=== PATIENT | male | born 1945 | race Caucasian/White ===

== ENCOUNTER 2016-10-19 06:30 | Emergency (ER) | payer MEDICARE ==
--- NOTE | 2016-10-19 08:16 | DIAGNOSTIC IMAGING REPORT ---
PROCEDURE: XR CHEST 1 VIEW INDICATION: SHORTNESS OF BREATH, initial encounter TECHNIQUE: Portable AP view 07:02 a.m. COMPARISON: Chest x-ray 02/10/2014 FINDINGS: Interval dual lead pacemaker. Poor inspiration but lungs are clear. Mild cardiomegaly. Mediastinum and pulmonary vessels are normal. Thorax is normal. IMPRESSION: 1. Pacemaker 2. Mild cardiomegaly
--- NOTE | 2016-10-19 08:48 | DIAGNOSTIC IMAGING REPORT ---
PROCEDURE: CTA THORAX WITH CONTRAST INDICATION: CHEST PAIN, initial encounter TECHNIQUE: 88 ml of Isovue 370 was injected intravenously and axial images were obtained of the entire thorax with 3D sagittal and coronal MIP reconstructions. COMPARISON: Chest x-ray 10/19/2016 FINDINGS: There are breathing artifacts. There are no large central pulmonary emboli. Suboptimal opacification of the distal branches likely due to breathing artifacts. Lungs are clear. No adenopathy or effusion. No aortic dissection or aneurysm. Minor coronary atherosclerosis. Mild cardiomegaly and small pericardial effusion. Pacemaker in place. Visualized upper abdomen is unremarkable. Bony thorax is unremarkable. IMPRESSION: 1. No evidence of large central pulmonary emboli but cannot exclude small peripheral emboli due to breathing artifacts 2. Pacemaker with mild cardiomegaly and small pericardial effusion 3. Results discussed with Dr. Amador
--- NOTE | 2016-10-19 09:57 | ED NURSING NOTES ---
Clinical Report - Nurses [facility] [address] [place] [address] 10/19/2016 6:31 Patient: CHELY RANGEL TRIAGE Triage time 06:37 Oct 19 2016. Chief Complaint: SHORTNESS OF BREATH. --06:41 Chaka Mayer R.N. 06:37 10/19/16. BP: 148/100. HR: 67. RR: 22. O2 saturation: 95%. Temp: 98.1 F. Pain level now 05/08. --06:41 Chaka Mayer R.N. ( Pt is in aflutter). --06:52 Chaka Mayer R.N. Weight: 90.7 kg stated. Height/Length: 68 inches Per Patient. BMI: 30.4. --06:51 Chaka Mayer R.N. Medications Lisinopril-Hydrochlorothiazide Oral (Tablet 20-12.5 mg) 1 tablet, daily. --06:38 Dayanna Eisenberg R.N. Lisinopril Oral 20 mg, daily. --06:56 Dayanna Eisenberg R.N. The following entry was struck and corrected by Dayanna Eisenberg R.N., 07:25 (10/19/16) Reason for correction - other(correction). <<STRICKEN ENTRY-- Lisinopril-Hydrochlorothiazide Oral. --06:38 Chaka Mayer R.N. --END STRIKE>> The following entry was struck and corrected by Dayanna Eisenberg R.N., 07:24 (10/19/16) Reason for correction - other(correction). <<STRICKEN ENTRY-- Lisinopril Oral. --06:56 Chaka Mayer R.N. --END STRIKE>>. Allergies No Known Drug Allergy. --06:38 Chaka Mayer R.N. History Arrived by private vehicle. Historian: patient. ( Pt reports pain with inspiration for last days, he has had difficulty sleeping as a result. Pt is speaking in full sentences and unlabored). This started yesterday. He has had chest pain. --06:41 Chaka Mayer R.N. SOCIAL HX: Never smoker. Alcohol use; consumes wine occasionally. No drug use. --06:52 Chaka Mayer R.N. PROBLEMS: Hypertension. --06:40 Chaka Mayer R.N. Heart block. --06:48 Chaka Mayer R.N. ADDITIONAL SURGERIES: Pacemaker. --06:40 Chaka Mayer R.N. Interventions ID band on patient. To treatment room. --06:52 Chaka Mayer R.N. PHYSICAL ASSESSMENT GENERAL / NEURO / PSYCH: Alert. Oriented X 4. Appears in no acute distress. Appears anxious. RESPIRATORY: No respiratory distress. Respirations not labored. Breath sounds within normal limits. CVS: Cardiac rhythm: atrial flutter. GI / : Bowel sounds within normal limits. SKIN: Skin is warm and dry. --06:52 Chaka Mayer R.N. NURSING PROGRESS NOTES 06:41 10/19/2016 Site #1 started via IV in the left antecubital space with an 18g angiocath, with good blood return; one attempt. Blood drawn: rainbow set. --06:46 Chaka Mayer R.N. parking control officer and pulse oximeter placed on patient. Patient gowned. Reassurance given. Two patient identifiers checked. Call light placed in reach. Side rails up x 1. Bed placed in lowest position. Patient ready for evaluation- chart flagged and notification provided. --06:53 Chaka Mayer R.N. EKG time: (0649 AM). EKG was ordered, performed by a tech and shown to the ED physician. --06:57 Josette Nayak Care transferred and report received (from PURA Null). --07:13 Dayanna Eisenberg R.N. 07:14 10/19/16. BP: 128/78. HR: 70. O2 saturation: 95%. --07:14 Chaka Mayer R.N. 07:29 10/19/16. Monitoring of patient in place; (Placed on "pacer mode", pt is 100% paced, remains a flutter underlying. Urine sample sent to lab.). --07:29 Dayanna Eisenberg R.N. 09:59 10/19/16. BP: 136/98. HR: 70. RR: 18. O2 saturation: 96%. Temp: 98.3 F. Pain level now 03/08. --10:03 Amelie Huggins R.N. 10:09 10/19/2016 Morphine IVP 4 mg given over 2 minute(s) via site #1. Allergies verified, confirmed 5 rights and sedative warning given to the patient. IV patency established. IV site checked: no pain, redness, or swelling. IV flushed thoroughly pre- and post-medication administration. --10:09 Amelie Huggins R.N. 10:13 10/19/2016 Aspirin PO Capsules 325 mg given. Allergies verified and confirmed 5 rights. --10:13 Amelie Huggins R.N. Head of bed elevated (90). Reassurance given. ( pt resting soundly.). --10:16 Amelie Huggins R.N. 10:15 10/19/16. BP: 129/81. HR: 70. RR: 18. O2 saturation: 95%. --10:16 Amelie Huggins R.N. 11:10/19/16. BP: 125/78. HR: 70. RR: 18. O2 saturation: 96%. Pain level now 12/06. --11:05 Amelie Huggins R.N. 16:05 10/19/16. BP: 122/72. HR: 88. RR: 18. O2 saturation: 97%. Pain level now: 11/08. 15:10 10/19/16. BP: 100/72. HR: 78. RR: 18. O2 saturation: 97%. 14:40 10/19/16. BP: 130/80. HR: 70. RR: 18. O2 saturation: 97%. 13:10 10/19/16. BP: 124/82. HR: 70. RR: 18. O2 saturation: 97%. 12:15 10/19/16. BP: 122/65. HR: 85. RR: 20. O2 saturation: 97%. Pain level now: 12/06. 11:10/19/16. BP: 125/78. HR: 70. RR: 18. O2 saturation: 96%. Pain level now 12/06. --16:42 Amelie Huggins R.N. DISPOSITION / DISCHARGE Departure time: 16:46 Oct 19 2016. Transferred to [facility]. ( Report given and chart printed for RN for transfer. All questions answered.). --16:46 Amelie Huggins R.N. 16:05 10/19/16. BP: 122/72. HR: 88. RR: 18. O2 saturation: 97%. Pain level now: 11/08. --16:46 Amelie Huggins R.N. 16:21 10/19/2016 Site #[address] upon transfer; patent. Good blood return present. Flushed with 5 mL saline; flushes easily. --16:46 Amelie Huggins R.N. Locked/Released at 10/19/2016 16:47 by Amelie Huggins R.N.
--- NOTE | 2016-10-19 09:57 | ED ORDER SUMMARY ---
..... Patient: CHELY RANGEL [facility] VisitID: [id number] [place] [address] 70y, M Registration Date/Time: 10/19/2016 ORDER SHEET Weight: 90.7 kg (stated) Allergies: No Known Drug Allergy GENERAL ORDERS: Chest 1V Urgent (06:56 10/19/2016 Blanka Mary) (Ack 6:58 DBeyer R.N.) (11:05 LWhalen R.N.) Stamp Redemption Clerk (Continuous) (sob, cp, a flutter) (06:56 10/19/2016 Blanka Mary) (6:57 DBeyer R.N.) CBC w Diff Urgent (06:56 10/19/2016 Blanka Mary) (6:57 DBeyer R.N.) CMP Urgent (06:56 10/19/2016 Blanka Mary) (6:57 DBeyer R.N.) UA-Culture if indicated Urgent (06:56 10/19/2016 Blanka Mary) (Ack 7:27 Kym) (7:28 LSullivan R.N.) PT with INR Urgent (06:56 10/19/2016 Blanka Mary) (6:57 DBeyer R.N.) PTT Urgent (06:56 10/19/2016 Blanka Mary) (6:57 DBeyer R.N.) Troponin-I Urgent (06:56 10/19/2016 Blanka Mary) (6:57 DBeyer R.N.) EKG - ER Stat (06:56 10/19/2016 Blanka Mary) (6:56 CHategekimana) Pulse oximeter (06:56 10/19/2016 Blanka Mary) (6:57 DBeyer R.N.) D-Dimer Urgent (07:11 10/19/2016 Blanka Mary) (Ack 7:26 Kym) (8:03 LSullivan R.N.) CTA Thorax w Cont (No) (gfr > 60) Urgent (07:34 10/19/2016 Blanka Mary) (Ack 7:39 Kym) (11:05 LWhalen R.N.) BNP Urgent (07:34 10/19/2016 Blanka Mary) (Ack 7:39 Kym) (8:03 LSullivan R.N.) Troponin-I (draw 2 hours after first trop drawn) Urgent (08:37 10/19/2016 Blanka Mary) (Ack 8:54 Kym) (11:05 LWhalen R.N.) MEDICATION ORDERS: Aspirin PO 325 mg (Do not crush or chew, NOW) (10:07 10/19/2016 Blanka Mary) (10:13 LWhalen R.N.) IV FLUIDS: IV Saline Lock (06:56 10/19/2016 Blanka Mayr) (6:57 LAURENTeyer R.N.) Morphine IV 4 mg (HIGH ALERT MEDICATION, NOW) (10:03 10/19/2016 Blanka Mary) (Cancelled: Duplicate Order10:04 Blanka Mary) Morphine IV 4 mg (once now. may repeat PRN pain > 5/10 every 1 hour. ) (10:04 10/19/2016 Blanka Mary) (10:09 LWhalen R.N.) ORDER SHEET NOTES: [Electronically signed by Amelie Huggins R.N. (16:47 10/19/2016)] [Electronically signed by Jerry Amador Dr. (16:04 10/27/2016)] [Electronically locked/signed by Amelie Huggins R.N. (16:47 10/19/2016)]
--- NOTE | 2016-10-19 09:57 | ED CLINICAL REPORT ---
Clinical Report - Physicians/Mid Levels [facility] [address] [place] [address] 10/19/2016 6:31 Patient: CHELY RANGEL Arrived- By private vehicle. Historian- patient. HISTORY OF PRESENT ILLNESS Chief Complaint: CHEST PAIN. It is described as "pain" and it is described as located in the central chest area. No radiation. At its maximum, severity described as moderate. When seen in the E.D., severity described as moderate. Modifying factors- worsened by supine position. Relieved by upright position. This started yesterday and is still present and worsening. It was abrupt in onset and has been constant but is not gone now. Onset during rest. No nausea, vomiting or diaphoresis. He has had difficulty breathing. No additional chest pain. Similar symptoms previously: None. Recent medical care: Not recently seen/assessed. REVIEW OF SYSTEMS No fever, chills or skin rash. All systems otherwise negative, except as recorded above. PAST HISTORY See nurses notes. Heart rhythm problems. Has pacemaker. Medications: Lisinopril Oral 20 mg, daily. Lisinopril-Hydrochlorothiazide Oral (Tablet 20-12.5 mg) 1 tablet, daily. Allergies: No Known Drug Allergy. SOCIAL HISTORY Never smoker. Occasional alcohol use. No drug use. No recent travel. Is a local resident. FAMILY HISTORY Negative. ADDITIONAL NOTES The nursing notes have been reviewed. PHYSICAL EXAM Vital Signs: 10/19/2016 06:37 BP: 148/100. HR: 67. RR: 22. O2 saturation: 95%. Temp: 98.1 F. Blood pressure normal. Oxygen saturation normal. Appearance: Alert. Oriented X3. Patient in mild distress. No marfanoid habitus. Eyes: Pupils equal, round and reactive to light. Eyes normal inspection. ENT: Ears normal. Nose normal. Pharynx normal. Neck: Normal inspection. Neck supple. No JVD. CVS: Normal heart rate and rhythm. Heart sounds normal. Pulses normal. Respiratory: No respiratory distress. Breath sounds normal. Chest nontender. No accessory muscle use, rales, rhonchi or wheezes. Abdomen: Soft and nontender. Bowel sounds normal. No mass. Back: Normal external inspection. Skin: Skin warm and dry. Normal skin color. No rash. Normal skin turgor. Extremities: Extremities exhibit normal ROM. No lower extremity edema. No lower extremity edema. Neuro: Oriented X 3. LABS, X-RAYS, AND EKG EKG: Atrial flutter (150 atrial rate 70 ventricular rate). LBBB. a flutter with ventricular pacing. The study has been interpreted contemporaneously by me. The study has been independently viewed by me. The EKG appears to be a good tracing. Chest X-ray: Cardiomegaly. Soft tissues normal. No infiltrate. No fracture. No bony lesion present. (cardiomegally. otherwise no acute findings). Views: PA. Technique: good. The X-rays were independently viewed by me and interpreted contemporaneously by me. Chest CT: Lungs normal. Great vessels normal. Mediastinum normal. No fractures noted. (no obvious PE). Chest CT performed with contrast. The study was independently viewed by me and interpreted by the radiologist. The study was discussed with the radiologist (via phone and pacs). Laboratory Tests: UA-Culture if indicated: (LLUVIA: 10/19/2016 07:20) ( MsgRcvd 10/19/2016 07:47) Final results Test Result Flag Units (Reference) URINE COLOR YELLOW URINE APPEARANCE CLEAR URINE GLUCOSE NEGATIVE (NEGATIVE) URINE BILIRUBIN NEGATIVE (NEGATIVE) URINE KETONE TRACE (NEGATIVE) URINE SPECIFIC GRAVITY 1.025 (1.010-1.030) URINE PH 5.5 (5.0-8.0) URINE PROTEIN NEGATIVE (NEGATIVE) URINE UROBILINOGEN 0.2 EU/dL (0.2-1.0) URINE NITRITE NEGATIVE (NEGATIVE) URINE BLOOD NEGATIVE (NEGATIVE) URINE LEUK ESTERASE NEGATIVE (NEGATIVE) URINE RBC NONE SEEN rbc/hpf (0-1) URINE WBC NONE SEEN wbc/hpf (0-1) URINE EPITHELIAL CELLS 0-1 EPI/hpf (0-5) URINE BACTERIA NONE SEEN (NONE SEEN) URINE COMMENT CULT NOT INDICATED URINE CULTURES ARE SET-UP BASED ON THE FOLLOWING CRITERIA:POSITIVE NITRITEPOSITIVE LEUKOCYTE ESTERASEGREATER THAN 10 WHITE BLOOD CELLSMODERATE (2+) OR GREATER BACTERIA CBC w Diff: (LLUVIA: 10/19/2016 06:10) ( MsgRcvd 10/19/2016 07:06) Final results Test Result Flag Units (Reference) WHITE BLOOD COUNT 14.9 H K/uL (4.5-11.5) RED BLOOD COUNT 5.78 M/uL (4.50-5.90) HEMOGLOBIN 15.4 gm/dL (13.5-17.5) HEMATOCRIT 48.0 % (41.0-53.0) MEAN CELL VOLUME 83 fL (80-100) MEAN CORPUSCULAR HGB 27 pg (26-34) MEAN CORPUSCULAR HGB CONC 32 g/dL (31-37) RED CELL DISTRIBUTION WIDTH 17.7 H % (11.6-14.8) PLATELET COUNT 245 K/uL (150-400) NEUTROPHIL % 86.9 H % (50-75) LYMPH % 5.4 L % (25-40) MONO % 7.6 % (3-14) EOSINOPHIL % 0.1 % (0-4) BASOPHIL % 0 % (0-2) [id number]: (LLUVIA: 10/19/2016 06:10) ( [facility] 10[facility]2016 07:23) Final results Test Result Flag Units (Reference) D-DIMER QUANTITATIVE 2.62 H ug/mLFEU (0.27-0.52) The primary value of this quantitative assay relates toits negative predictive value (i.e. exclusion) of pulmonaryembolism/deep vein thrombosis/DIC.Elevated levels of d-dimer may also occur with:, age, cancer, inflammation, liver disease,post-op, infection, hematoma, coronary disease, peripheralarteriopathy, bleeding disorders and thrombolytic treatment.Results should be correlated with other clinical andradiological data.Testing Methodology: Latex Immunoassay PT with INR: (LLUVIA: 10/19/2016 06:10) ( KygRcvd 10/19/2016 07:14) Final results Test Result Flag Units (Reference) INR 0.9 (0.8-1.2) Low Intensity Therapy: INR 1.5-2.0 PT range 18.5-23.1Mod.Intensity Therapy: INR 2.0-3.0 PT range 23.1-31.5High Intensity Therapy: INR 2.5-3.5 PT range 27.4-35.5High Intensity Therapy 2: INR 3.0-4.0 PT range 31.5-39.3 APTT 33 SECONDS (24-34) Troponin-I: (LLUVIA: 10/19/2016 09:05) ( [facility] 10/19/2016 09:32) Final results Test Result Flag Units (Reference) TROPONIN I <0.05 L ng/mL (0.00-1.5) TROPONIN REFERENCE RANGE:<0.1 NEGATIVE0.1-1.5 INDETERMINANT>1.5 POSITIVE BNP: (LLUVIA: 10/19/2016 06:10) ( [facility] 10/19/2016 07:56) Final results Test Result Flag Units (Reference) B-TYPE NATRIURETIC PEPTIDE 201 H pg/ml (5-100) CMP: (LLUVIA: 10/19/2016 06:10) ( [facility] 10/19/2016 07:30) Final results Test Result Flag Units (Reference) GLUCOSE 167 H mg/dL (70-110) BUN 18 mg/dL (7-18) CREATININE 1.1 mg/dL (0.6-1.3) Estimated GFR >60 mL/min Estimated GFR- >60 mL/min Note: Persistent reduction over 3 months in eGFR<60 mL/min/1.73 m2 defines CKD. Patients with eGFR values>=60 mL/min/1.73 m2 may also have CKD if evidence ofpersistent proteinuria. Additional information may be foundat www.kidney.org. SODIUM 144 mmol/L (136-145) POTASSIUM 4.3 mmol/L (3.5-5.1) CHLORIDE 106 mmol/L (98-107) CARBON DIOXIDE 29 mmol/L (21-32) CALCIUM 9.1 mg/dL (8.5-10.1) TOTAL PROTEIN 7.2 g/dL (6.4-8.2) ALBUMIN 3.7 g/dL (3.3-5.0) BILIRUBIN, TOTAL 1.1 H mg/dL (0.0-1.0) ALKALINE PHOSPHATASE 86 U/L (46-116) AST (SGOT) 45 H U/L (15-37) ALT (SGPT) 78 U/L (12-78) TROPONIN I <0.05 L ng/mL (0.00-1.5) TROPONIN REFERENCE RANGE:<0.1 NEGATIVE0.1-1.5 INDETERMINANT>1.5 POSITIVE . Pulse Oximetry: 10/19/2016 16:05 O2 saturation: 97%. Interpretation: normal. PROGRESS AND PROCEDURES Course of Care: the patient is a pleasant 70-year-old male with past medical history with what patient describes as possible Mobitz type II block with pacemaker who presents for evaluation of shortness of breath. The patient is also having chest pain. Differential diagnoses at this time includes arrhythmia, myocardial infarction, pulmonary embolism, pneumonia. The patient will be evaluated with laboratory studies including EKG, chest x-ray, troponin, BNP, CMPcomplete blood count, and d-dimer. The patient is agreeable to the treatment plan. Patient with history of upper GI bleed, will hold aspirin at this time until further workup has been obtained. Patient's workup was noted to be normal for the first troponin. Had discussion with manufacturing operator who is covering for the patient's manufacturing operator. Did not recommend anticoagulation at this time, also did not recommend cardioversion as the patient has a CHADSVASC score 2. I did have a discussion with the patient earlier in regards to cardioversion be needed if the patient becomes hemodynamically unstable. Patient was agreeable to this if it does happen and is accepted the risks. The patient workup was positive for an elevated d-dimer. Patient will be evaluated with a CT pulmonary embolism study. Patient is agreeable to the treatment plan. Workup shows no acute pulmonary embolism. The patient is resting in bed in no acute distress. Head discussion with cardiology in regards to the patient. Patient will be transferred for further management of the atrial flutter. Patient with shortness of breath and chest pain likely secondary to the atrial flutter. Patient is currently rate controlled. No other abnormalities noted on patient's workup. Lungs are clear on chest x-ray. Patient will be admitted to [facility] for further management and care of the arrhythmia. Do not feel patient is stable outpatient candidate based on the persistent chest pain and shortness of breath as well as atrial flutteron examination. Patient likely not getting the atrial kick to help with perfusion. We'll continue to monitor at this time. We were able to contact a hospitalist and secure a placeat [facility] for the patient to be transferred. We are currently awaiting a specific bed. Pain medication as been provided in the emergency department as the patient likely does not have cardiac etiology for his pain here in the emergency department. Because the patient's CT scan does not show any signs of aortic dissection, aspirin will be given. I did have a discussion with the patient in regards to his history of GI bleed. Patient reports associated "overdosed."On ibuprofen which triggered his GI bleed. Patient without any signs of active GI bleed here in the emergency department. Patient is agreeable to the treatment with aspirin at this time. Head discussed with patient workup, diagnosis, plan of care. Patient is agreeable to the treatment plan. Informed written consent for transfer obtained. patient transfered. patient stable at time of transfer. Critical care performed (95 minutes). Time is exclusive of separately billable procedures. Time includes: direct patient care, patient reassessment, coordination of patient care, interpretation of data (laboratory data, pulse oximetry and chest xrays), review of patient's medical records, medical consultation, family consultation regarding treatment decisions and documentation of patient care. Consult obtained from cardiology. Dr. Beltran. [facility] in [place] covering for Dr. Pollock. Disposition: Benefits, risks and alternatives to transfer explained to patient and spouse. Transferred to [facility]. CLINICAL IMPRESSION Chest pain characterized as "discomfort". Acute dyspnea. New onset atrial flutter. The patient does not have one or more high risk factors and/or two or more moderate risk factors for thromboembolism. The patient is prescribed warfarin or another FDA approved anticoagulant. atrial flutter, acute chest pain, acute substernal. (Electronically signed by Jerry Amador Dr. 10/27/2016 16:04)
--- NOTE | 2016-10-19 09:57 | ED CLINICAL REPORT ---
Clinical Report - Physicians/Mid Levels [facility] [address] [place] [address] 10/19/2016 6:31 Patient: CHELY RANGEL Arrived- By private vehicle. Historian- patient. HISTORY OF PRESENT ILLNESS Chief Complaint: CHEST PAIN. It is described as "pain" and it is described as located in the central chest area. No radiation. At its maximum, severity described as moderate. When seen in the E.D., severity described as moderate. Modifying factors- worsened by supine position. Relieved by upright position. This started yesterday and is still present and worsening. It was abrupt in onset and has been constant but is not gone now. Onset during rest. No nausea, vomiting or diaphoresis. He has had difficulty breathing. No additional chest pain. Similar symptoms previously: None. Recent medical care: Not recently seen/assessed. REVIEW OF SYSTEMS No fever, chills or skin rash. All systems otherwise negative, except as recorded above. PAST HISTORY See nurses notes. Heart rhythm problems. Has pacemaker. Medications: Lisinopril Oral 20 mg, daily. Lisinopril-Hydrochlorothiazide Oral (Tablet 20-12.5 mg) 1 tablet, daily. Allergies: No Known Drug Allergy. SOCIAL HISTORY Never smoker. Occasional alcohol use. No drug use. No recent travel. Is a local resident. FAMILY HISTORY Negative. ADDITIONAL NOTES The nursing notes have been reviewed. PHYSICAL EXAM Vital Signs: 10/19/2016 06:37 BP: 148/100. HR: 67. RR: 22. O2 saturation: 95%. Temp: 98.1 F. Blood pressure normal. Oxygen saturation normal. Appearance: Alert. Oriented X3. Patient in mild distress. No marfanoid habitus. Eyes: Pupils equal, round and reactive to light. Eyes normal inspection. ENT: Ears normal. Nose normal. Pharynx normal. Neck: Normal inspection. Neck supple. No JVD. CVS: Normal heart rate and rhythm. Heart sounds normal. Pulses normal. Respiratory: No respiratory distress. Breath sounds normal. Chest nontender. No accessory muscle use, rales, rhonchi or wheezes. Abdomen: Soft and nontender. Bowel sounds normal. No mass. Back: Normal external inspection. Skin: Skin warm and dry. Normal skin color. No rash. Normal skin turgor. Extremities: Extremities exhibit normal ROM. No lower extremity edema. No lower extremity edema. Neuro: Oriented X 3. LABS, X-RAYS, AND EKG EKG: Atrial flutter (150 atrial rate 70 ventricular rate). LBBB. a flutter with ventricular pacing. The study has been interpreted contemporaneously by me. The study has been independently viewed by me. The EKG appears to be a good tracing. Chest X-ray: Cardiomegaly. Soft tissues normal. No infiltrate. No fracture. No bony lesion present. (cardiomegally. otherwise no acute findings). Views: PA. Technique: good. The X-rays were independently viewed by me and interpreted contemporaneously by me. Chest CT: Lungs normal. Great vessels normal. Mediastinum normal. No fractures noted. (no obvious PE). Chest CT performed with contrast. The study was independently viewed by me and interpreted by the radiologist. The study was discussed with the radiologist (via phone and pacs). Laboratory Tests: UA-Culture if indicated: (LLUVIA: 10/19/2016 07:20) ( MsgRcvd 10/19/2016 07:47) Final results Test Result Flag Units (Reference) URINE COLOR YELLOW URINE APPEARANCE CLEAR URINE GLUCOSE NEGATIVE (NEGATIVE) URINE BILIRUBIN NEGATIVE (NEGATIVE) URINE KETONE TRACE (NEGATIVE) URINE SPECIFIC GRAVITY 1.025 (1.010-1.030) URINE PH 5.5 (5.0-8.0) URINE PROTEIN NEGATIVE (NEGATIVE) URINE UROBILINOGEN 0.2 EU/dL (0.2-1.0) URINE NITRITE NEGATIVE (NEGATIVE) URINE BLOOD NEGATIVE (NEGATIVE) URINE LEUK ESTERASE NEGATIVE (NEGATIVE) URINE RBC NONE SEEN rbc/hpf (0-1) URINE WBC NONE SEEN wbc/hpf (0-1) URINE EPITHELIAL CELLS 0-1 EPI/hpf (0-5) URINE BACTERIA NONE SEEN (NONE SEEN) URINE COMMENT CULT NOT INDICATED URINE CULTURES ARE SET-UP BASED ON THE FOLLOWING CRITERIA:POSITIVE NITRITEPOSITIVE LEUKOCYTE ESTERASEGREATER THAN 10 WHITE BLOOD CELLSMODERATE (2+) OR GREATER BACTERIA CBC w Diff: (LLUVIA: 10/19/2016 06:10) ( MsgRcvd 10/19/2016 07:06) Final results Test Result Flag Units (Reference) WHITE BLOOD COUNT 14.9 H K/uL (4.5-11.5) RED BLOOD COUNT 5.78 M/uL (4.50-5.90) HEMOGLOBIN 15.4 gm/dL (13.5-17.5) HEMATOCRIT 48.0 % (41.0-53.0) MEAN CELL VOLUME 83 fL (80-100) MEAN CORPUSCULAR HGB 27 pg (26-34) MEAN CORPUSCULAR HGB CONC 32 g/dL (31-37) RED CELL DISTRIBUTION WIDTH 17.7 H % (11.6-14.8) PLATELET COUNT 245 K/uL (150-400) NEUTROPHIL % 86.9 H % (50-75) LYMPH % 5.4 L % (25-40) MONO % 7.6 % (3-14) EOSINOPHIL % 0.1 % (0-4) BASOPHIL % 0 % (0-2) [id number]: (LLUVIA: 10/19/2016 06:10) ( [facility] 10/19/2016 07:23) Final results Test Result Flag Units (Reference) D-DIMER QUANTITATIVE 2.62 H ug/mLFEU (0.27-0.52) The primary value of this quantitative assay relates toits negative predictive value (i.e. exclusion) of pulmonaryembolism/deep vein thrombosis/DIC.Elevated levels of d-dimer may also occur with:, age, cancer, inflammation, liver disease,post-op, infection, hematoma, coronary disease, peripheralarteriopathy, bleeding disorders and thrombolytic treatment.Results should be correlated with other clinical andradiological data.Testing Methodology: Latex Immunoassay PT with INR: (LLUVIA: 10/19/2016 06:10) ( GagRcvd 10/19/2016 07:14) Final results Test Result Flag Units (Reference) INR 0.9 (0.8-1.2) Low Intensity Therapy: INR 1.5-2.0 PT range 18.5-23.1Mod.Intensity Therapy: INR 2.0-3.0 PT range 23.1-31.5High Intensity Therapy: INR 2.5-3.5 PT range 27.4-35.5High Intensity Therapy 2: INR 3.0-4.0 PT range 31.5-39.3 APTT 33 SECONDS (24-34) Troponin-I: (LLUVIA: 10/19/2016 09:05) ( [facility] 10/19/2016 09:32) Final results Test Result Flag Units (Reference) TROPONIN I <0.05 L ng/mL (0.00-1.5) TROPONIN REFERENCE RANGE:<0.1 NEGATIVE0.1-1.5 INDETERMINANT>1.5 POSITIVE BNP: (LLUVIA: 10/19/2016 06:10) ( [facility] 10/19/2016 07:56) Final results Test Result Flag Units (Reference) B-TYPE NATRIURETIC PEPTIDE 201 H pg/ml (5-100) CMP: (LLUVIA: 10/19/2016 06:10) ( [facility] 10/19/2016 07:30) Final results Test Result Flag Units (Reference) GLUCOSE 167 H mg/dL (70-110) BUN 18 mg/dL (7-18) CREATININE 1.1 mg/dL (0.6-1.3) Estimated GFR >60 mL/min Estimated GFR- >60 mL/min Note: Persistent reduction over 3 months in eGFR<60 mL/min/1.73 m2 defines CKD. Patients with eGFR values>=60 mL/min/1.73 m2 may also have CKD if evidence ofpersistent proteinuria. Additional information may be foundat www.[email or web address].org. SODIUM 144 mmol/L (136-145) POTASSIUM 4.3 mmol/L (3.5-5.1) CHLORIDE 106 mmol/L (98-107) CARBON DIOXIDE 29 mmol/L (21-32) CALCIUM 9.1 mg/dL (8.5-10.1) TOTAL PROTEIN 7.2 g/dL (6.4-8.2) ALBUMIN 3.7 g/dL (3.3-5.0) BILIRUBIN, TOTAL 1.1 H mg/dL (0.0-1.0) ALKALINE PHOSPHATASE 86 U/L (46-116) AST (SGOT) 45 H U/L (15-37) ALT (SGPT) 78 U/L (12-78) TROPONIN I <0.05 L ng/mL (0.00-1.5) TROPONIN REFERENCE RANGE:<0.1 NEGATIVE0.1-1.5 INDETERMINANT>1.5 POSITIVE . Pulse Oximetry: 10/19/2016 16:05 O2 saturation: 97%. Interpretation: normal. PROGRESS AND PROCEDURES Course of Care: the patient is a pleasant 70-year-old male with past medical history with what patient describes as possible Mobitz type II block with pacemaker who presents for evaluation of shortness of breath. The patient is also having chest pain. Differential diagnoses at this time includes arrhythmia, myocardial infarction, pulmonary embolism, pneumonia. The patient will be evaluated with laboratory studies including EKG, chest x-ray, troponin, BNP, CMPcomplete blood count, and d-dimer. The patient is agreeable to the treatment plan. Patient with history of upper GI bleed, will hold aspirin at this time until further workup has been obtained. Patient's workup was noted to be normal for the first troponin. Had discussion with cloud engineer who is covering for the patient's cloud engineer. Did not recommend anticoagulation at this time, also did not recommend cardioversion as the patient has a CHADSVASC score 2. I did have a discussion with the patient earlier in regards to cardioversion be needed if the patient becomes hemodynamically unstable. Patient was agreeable to this if it does happen and is accepted the risks. The patient workup was positive for an elevated d-dimer. Patient will be evaluated with a CT pulmonary embolism study. Patient is agreeable to the treatment plan. Workup shows no acute pulmonary embolism. The patient is resting in bed in no acute distress. Head discussion with cardiology in regards to the patient. Patient will be transferred for further management of the atrial flutter. Patient with shortness of breath and chest pain likely secondary to the atrial flutter. Patient is currently rate controlled. No other abnormalities noted on patient's workup. Lungs are clear on chest x-ray. Patient will be admitted to [facility] for further management and care of the arrhythmia. Do not feel patient is stable outpatient candidate based on the persistent chest pain and shortness of breath as well as atrial flutteron examination. Patient likely not getting the atrial kick to help with perfusion. We'll continue to monitor at this time. We were able to contact a hospitalist and secure a placeat [facility] for the patient to be transferred. We are currently awaiting a specific bed. Pain medication as been provided in the emergency department as the patient likely does not have cardiac etiology for his pain here in the emergency department. Because the patient's CT scan does not show any signs of aortic dissection, aspirin will be given. I did have a discussion with the patient in regards to his history of GI bleed. Patient reports associated "overdosed."On ibuprofen which triggered his GI bleed. Patient without any signs of active GI bleed here in the emergency department. Patient is agreeable to the treatment with aspirin at this time. Head discussed with patient workup, diagnosis, plan of care. Patient is agreeable to the treatment plan. Informed written consent for transfer obtained. patient transfered. patient stable at time of transfer. Critical care performed (95 minutes). Time is exclusive of separately billable procedures. Time includes: direct patient care, patient reassessment, coordination of patient care, interpretation of data (laboratory data, pulse oximetry and chest xrays), review of patient's medical records, medical consultation, family consultation regarding treatment decisions and documentation of patient care. Consult obtained from cardiology. Dr. Beltran. [facility] in [place] covering for Dr. Pollock. Disposition: Benefits, risks and alternatives to transfer explained to patient and spouse. Transferred to [facility]. CLINICAL IMPRESSION Chest pain characterized as "discomfort". Acute dyspnea. New onset atrial flutter. The patient does not have one or more high risk factors and/or two or more moderate risk factors for thromboembolism. The patient is prescribed warfarin or another FDA approved anticoagulant. atrial flutter, acute chest pain, acute substernal. (Electronically signed by Jerry Amador Dr. 10/27/2016 16:04)
--- NOTE | 2016-10-19 09:57 | ED NURSING NOTES ---
Clinical Report - Nurses [facility] [address] [place] [address] 10/19/2016 6:31 Patient: CHELY RANGEL TRIAGE Triage time 06:37 Oct 19 2016. Chief Complaint: SHORTNESS OF BREATH. --06:41 Chaka Mayer R.N. 06:37 10/19/16. BP: 148/100. HR: 67. RR: 22. O2 saturation: 95%. Temp: 98.1 F. Pain level now 05/08. --06:41 Chaka Mayer R.N. ( Pt is in aflutter). --06:52 Chaka Mayer R.N. Weight: 90.7 kg stated. Height/Length: 68 inches Per Patient. BMI: 30.4. --06:51 Chaka Mayer R.N. Medications Lisinopril-Hydrochlorothiazide Oral (Tablet 20-12.5 mg) 1 tablet, daily. --06:38 Dayanna Eisenberg R.N. Lisinopril Oral 20 mg, daily. --06:56 Dayanna Eisenberg R.N. The following entry was struck and corrected by Dayanna Eisenberg R.N., 07:25 (10/19/16) Reason for correction - other(correction). <<STRICKEN ENTRY-- Lisinopril-Hydrochlorothiazide Oral. --06:38 Chaka Mayer R.N. --END STRIKE>> The following entry was struck and corrected by Dayanna Eisenberg R.N., 07:24 (10/19/16) Reason for correction - other(correction). <<STRICKEN ENTRY-- Lisinopril Oral. --06:56 Chaka Mayer R.N. --END STRIKE>>. Allergies No Known Drug Allergy. --06:38 Chaka Mayer R.N. History Arrived by private vehicle. Historian: patient. ( Pt reports pain with inspiration for last days, he has had difficulty sleeping as a result. Pt is speaking in full sentences and unlabored). This started yesterday. He has had chest pain. --06:41 Chaka Mayer R.N. SOCIAL HX: Never smoker. Alcohol use; consumes wine occasionally. No drug use. --06:52 Chaka Mayer R.N. PROBLEMS: Hypertension. --06:40 Chaka Mayer R.N. Heart block. --06:48 Chaka Mayer R.N. ADDITIONAL SURGERIES: Pacemaker. --06:40 Chaka Mayer R.N. Interventions ID band on patient. To treatment room. --06:52 Chaka Mayer R.N. PHYSICAL ASSESSMENT GENERAL / NEURO / PSYCH: Alert. Oriented X 4. Appears in no acute distress. Appears anxious. RESPIRATORY: No respiratory distress. Respirations not labored. Breath sounds within normal limits. CVS: Cardiac rhythm: atrial flutter. GI / : Bowel sounds within normal limits. SKIN: Skin is warm and dry. --06:52 Chaka Mayer R.N. NURSING PROGRESS NOTES 06:41 10/19/2016 Site #1 started via IV in the left antecubital space with an 18g angiocath, with good blood return; one attempt. Blood drawn: rainbow set. --06:46 Chaka Mayer R.N. fishing rod marker and pulse oximeter placed on patient. Patient gowned. Reassurance given. Two patient identifiers checked. Call light placed in reach. Side rails up x 1. Bed placed in lowest position. Patient ready for evaluation- chart flagged and notification provided. --06:53 Chaka Mayer R.N. EKG time: (0649 AM). EKG was ordered, performed by a tech and shown to the ED physician. --06:57 Josette Nayak Care transferred and report received (from PURA Null). --07:13 Dayanna Eisenberg R.N. 07:14 10/19/16. BP: 128/78. HR: 70. O2 saturation: 95%. --07:14 Chaka Mayer R.N. 07:29 10/19/16. Monitoring of patient in place; (Placed on "pacer mode", pt is 100% paced, remains a flutter underlying. Urine sample sent to lab.). --07:29 Dayanna Eisenberg R.N. 09:59 10/19/16. BP: 136/98. HR: 70. RR: 18. O2 saturation: 96%. Temp: 98.3 F. Pain level now 03/08. --10:03 Amelie Huggins R.N. 10:09 10/19/2016 Morphine IVP 4 mg given over 2 minute(s) via site #1. Allergies verified, confirmed 5 rights and sedative warning given to the patient. IV patency established. IV site checked: no pain, redness, or swelling. IV flushed thoroughly pre- and post-medication administration. --10:09 Amelie Huggins R.N. 10:13 10/19/2016 Aspirin PO Capsules 325 mg given. Allergies verified and confirmed 5 rights. --10:13 Amelie Huggins R.N. Head of bed elevated (90). Reassurance given. ( pt resting soundly.). --10:16 Amelie Huggins R.N. 10:15 10/19/16. BP: 129/81. HR: 70. RR: 18. O2 saturation: 95%. --10:16 Amelie Huggins R.N. 11:10/19/16. BP: 125/78. HR: 70. RR: 18. O2 saturation: 96%. Pain level now 12/06. --11:05 Amelie Huggins R.N. 16:05 10/19/16. BP: 122/72. HR: 88. RR: 18. O2 saturation: 97%. Pain level now: 11/08. 15:10 10/19/16. BP: 100/72. HR: 78. RR: 18. O2 saturation: 97%. 14:40 10/19/16. BP: 130/80. HR: 70. RR: 18. O2 saturation: 97%. 13:10 10/19/16. BP: 124/82. HR: 70. RR: 18. O2 saturation: 97%. 12:15 10/19/16. BP: 122/65. HR: 85. RR: 20. O2 saturation: 97%. Pain level now: 12/06. 11:10/19/16. BP: 125/78. HR: 70. RR: 18. O2 saturation: 96%. Pain level now 12/06. --16:42 Amelie Huggins R.N. DISPOSITION / DISCHARGE Departure time: 16:46 Oct 19 2016. Transferred to [facility]. ( Report given and chart printed for RN for transfer. All questions answered.). --16:46 Amelie Huggins R.N. 16:05 10/19/16. BP: 122/72. HR: 88. RR: 18. O2 saturation: 97%. Pain level now: 11/08. --16:46 Amelie Huggins R.N. 16:21 10/19/2016 Site #[address] upon transfer; patent. Good blood return present. Flushed with 5 mL saline; flushes easily. --16:46 Amelie Huggins R.N. Locked/Released at 10/19/2016 16:47 by Amelie Huggins R.N.
--- NOTE | 2016-10-19 09:57 | ED ORDER SUMMARY ---
..... Patient: CHELY RANGEL OrderSheet [facility] VisitID: [id number] [place] [address] 70y, M Registration Date/Time: 10/19/2016 ORDER SHEET Weight: 90.7 kg (stated) Allergies: No Known Drug Allergy GENERAL ORDERS: Chest 1V Urgent (06:56 10/19/2016 Blanka Mary) (Ack 6:58 DBeyer R.N.) (11:05 LWhalen R.N.) Engraver Copperplate (Continuous) (sob, cp, a flutter) (06:56 10/19/2016 Blanka Mary) (6:57 DBeyer R.N.) CBC w Diff Urgent (06:56 10/19/2016 Blanka Mary) (6:57 DBeyer R.N.) CMP Urgent (06:56 10/19/2016 Blanka Mary) (6:57 DBeyer R.N.) UA-Culture if indicated Urgent (06:56 10/19/2016 Blanka Mary) (Ack 7:27 Kym) (7:28 LSullivan R.N.) PT with INR Urgent (06:56 10/19/2016 Blanka Mary) (6:57 DBeyer R.N.) PTT Urgent (06:56 10/19/2016 Blanka Mary) (6:57 DBeyer R.N.) Troponin-I Urgent (06:56 10/19/2016 Blanka Mary) (6:57 DBeyer R.N.) EKG - ER Stat (06:56 10/19/2016 Blanka Mary) (6:56 CHategekimana) Pulse oximeter (06:56 10/19/2016 Blanka Mary) (6:57 DBeyer R.N.) D-Dimer Urgent (07:11 10/19/2016 Blanka Mary) (Ack 7:26 Kym) (8:03 LSullivan R.N.) CTA Thorax w Cont (No) (gfr > 60) Urgent (07:34 10/19/2016 Blanka Mary) (Ack 7:39 Kym) (11:05 LWhalen R.N.) BNP Urgent (07:34 10/19/2016 Blanka Mary) (Ack 7:39 Kym) (8:03 LSullivan R.N.) Troponin-I (draw 2 hours after first trop drawn) Urgent (08:37 10/19/2016 Blanka Mary) (Ack 8:54 Kym) (11:05 LWhalen R.N.) MEDICATION ORDERS: Aspirin PO 325 mg (Do not crush or chew, NOW) (10:07 10/19/2016 Blanka Mary) (10:13 LWhalen R.N.) IV FLUIDS: IV Saline Lock (06:56 10/19/2016 Blanka Mary) (6:57 LAURENTeyer R.N.) Morphine IV 4 mg (HIGH ALERT MEDICATION, NOW) (10:03 10/19/2016 Blanka Mayr) (Cancelled: Duplicate Order10:04 Blanka Mary) Morphine IV 4 mg (once now. may repeat PRN pain > 5/10 every 1 hour. ) (10:04 10/19/2016 Blanka Mary) (10:09 LWhalen R.N.) ORDER SHEET NOTES: [Electronically signed by Amelie Huggins R.N. (16:47 10/19/2016)] [Electronically signed by Jerry Amador Dr. (16:04 10/27/2016)] [Electronically locked/signed by Amelie Huggins R.N. (16:47 10/19/2016)]
--- NOTE | 2016-10-27 16:04 | ED MED RECONCILIATION SUMMARY ---
Patient: CHELY RANGEL Medication Reconciliation Report [facility] VisitID: [id number] [address] [place] [address] 70y, M Registration Date/Time: 10/19/2016 Weight: 90.7 kg Height/Length: 68 in. BMI: 30.4 ALLERGIES: No Known Drug Allergy The patient's Home Medications are listed below: THE FOLLOWING MEDICATIONS NEED TO BE RECONCILED: Lisinopril Oral 20 mg, daily Lisinopril-Hydrochlorothiazide Oral (20-12.5 mg) 1 tablet, daily The source(s) of the original Home Medication information: Not obtained. The following Medications were given to the patient in the Emergency Department: Morphine [IVP] IVP 4 mg, administered: 10/19/2016 10:09:00 AM Aspirin [PO] PO 325 mg, administered: 10/19/2016 10:13:00 AM The following Medications were prescribed to the patient: None.
--- NOTE | 2016-10-27 16:04 | ED MAR SUMMARY ---
..... Medication Administration Record [facility] [address] [place] [address] Patient: CHELY RANGEL Visit ID: [id number] 70y, M Weight: 90.7 kg Height/Length: 68 in BMI: 30.4 ALLERGIES: No Known Drug Allergy Given 10:09 10/19/2016 Amelie Huggins R.N. Medication Administered: MORPHINE [IVP], Dose: 4 mg IVP over 2 minute(s), Site: #1 left AC. Medication Ordered: Morphine IV 4 mg (once now. may repeat PRN pain > 5/10 every 1 hour. ). Given 10:13 10/19/2016 Amelie Huggins R.N. Medication Administered: ASPIRIN [PO], Dose: 325 mg Capsules PO. Medication Ordered: Aspirin PO 325 mg (Do not crush or chew, NOW).
--- NOTE | 2016-10-27 16:04 | ED DISCHARGE INSTRUCTIONS ---
Patient: CHELY RANGEL General Instructions [facility] VisitID: [id number] [address] [place] [address] 70y, M Registration Date/Time: 10/19/2016 Chest pain characterized as "discomfort". Acute dyspnea. New onset atrial flutter. The patient does not have one or more high risk factors and/or two or more moderate risk factors for thromboembolism. The patient is prescribed warfarin or another FDA approved anticoagulant. atrial flutter, acute chest pain, acute substernal. (Electronically signed by Jerry Amador Dr. 10/27/2016 16:04)
--- NOTE | 2016-10-27 16:04 | ED MED RECONCILIATION SUMMARY ---
Patient: CHELY RANGEL Medication Reconciliation Report [facility] VisitID: [id number] [address] [place] [address] 70y, M Registration Date/Time: 10/19/2016 Weight: 90.7 kg Height/Length: 68 in. BMI: 30.4 ALLERGIES: No Known Drug Allergy The patient's Home Medications are listed below: THE FOLLOWING MEDICATIONS NEED TO BE RECONCILED: Lisinopril Oral 20 mg, daily Lisinopril-Hydrochlorothiazide Oral (20-12.5 mg) 1 tablet, daily The source(s) of the original Home Medication information: Not obtained. The following Medications were given to the patient in the Emergency Department: Morphine [IVP] IVP 4 mg, administered: 10/19/2016 10:09:00 AM Aspirin [PO] PO 325 mg, administered: 10/19/2016 10:13:00 AM The following Medications were prescribed to the patient: None.
--- NOTE | 2016-10-27 16:04 | ED DISCHARGE INSTRUCTIONS ---
Patient: CHELY RANGEL General Instructions [facility] VisitID: [id number] [address] [place] [address] 70y, M Registration Date/Time: 10/19/2016 Chest pain characterized as "discomfort". Acute dyspnea. New onset atrial flutter. The patient does not have one or more high risk factors and/or two or more moderate risk factors for thromboembolism. The patient is prescribed warfarin or another FDA approved anticoagulant. atrial flutter, acute chest pain, acute substernal. (Electronically signed by Jerry Amador Dr. 10/27/2016 16:04)
--- NOTE | 2016-10-27 16:04 | ED MAR SUMMARY ---
..... Medication Administration Record [facility] [address] [place] [address] Patient: CHELY RANGEL Visit ID: [id number] 70y, M Weight: 90.7 kg Height/Length: 68 in BMI: 30.4 ALLERGIES: No Known Drug Allergy Given 10:09 10/19/2016 Amelie Huggins R.N. Medication Administered: MORPHINE [IVP], Dose: 4 mg IVP over 2 minute(s), Site: #1 left AC. Medication Ordered: Morphine IV 4 mg (once now. may repeat PRN pain > 5/10 every 1 hour. ). Given 10:13 10/19/2016 Amelie Huggins R.N. Medication Administered: ASPIRIN [PO], Dose: 325 mg Capsules PO. Medication Ordered: Aspirin PO 325 mg (Do not crush or chew, NOW).
== END 2016-10-19 16:20 | disposition short-term general hospital (02) ==
LOC: ED SRH 06:30
DX: R07.89 Other chest pain (principal); R06.00 Dyspnea, unspecified; I48.92 Unspecified atrial flutter; Z79.899 Other long term (current) drug therapy
CPT/HCPCS: 90004; 90074; 90100; 90616; 91320; 91556; 94001; 94060; 95059